=== PATIENT | male | born 1950 | race Hispanic/Latino ===

== ENCOUNTER 2017-03-28 10:35 | Day surgery (SDC) | payer MEDICARE, BC ==
[2017-03-28 11:02] VITALS: BMI 28.8
[2017-03-28] MEDS ORDERED: cefTRIAXone (Rocephin) 1 gm Inj ONE (11:53)
[2017-03-28] MEDS ORDERED: cefTRIAXone 1 gm 1 GM/100 ML BAG IVPB STA (11:55)
[2017-03-28] MEDS ORDERED: Etomidate 20 mg/10ml Inj IV ONE (12:19)
[2017-03-28] MEDS ORDERED: Propofol 10 mg/ml Inj (20 ML) ONE (12:19)
[2017-03-28] MEDS ORDERED: Midazolam 2 MG/2 ML VIAL ONE (12:19)
[2017-03-28] MEDS ORDERED: ePHEDrine 50 mg/ml Inj ONE (13:17)
[2017-03-28] MEDS ORDERED: Rocuronium 10 mg/ml (5 ml) ONE (13:36)
[2017-03-28] MEDS ORDERED: Neostigmine Methylsulfate 3mg/3ml Syringe IV ONE (13:54)
[2017-03-28] MEDS ORDERED: HYDROmorphone 0.5 mg/0.5 ml ISec IVP PRN (14:17)
[2017-03-28] MEDS ORDERED: Lactated Ringer's 1,000 ML IV SCH (14:30)
[2017-03-28 15:25] VITALS: RESP 18; TEMP 97.5; O2SAT 98
[2017-03-28 15:58] VITALS: BP 140/87; PULSE 50
--- NOTE | 2017-03-29 00:59 | OP ---
PROCEDURE DATE: 03/28/2017 PREOPERATIVE DIAGNOSIS: Bladder calculi. POSTOPERATIVE DIAGNOSIS: Bladder calculi with two large bladder calculi. PROCEDURE: Cystoscopy with holmium laser vesicolithotripsy of the largest bladder calculus greater than 4 cm. SURGEON: Renzo Ortiz MD ANESTHESIA: General endotracheal. DESCRIPTION OF PROCEDURE: After adequate general endotracheal anesthesia was given, the patient was placed in lithotomy, prepped and draped in the usual manner. A 22-Chilean cystourethroscope was introduced under direct vision. The anterior urethra was normal. Prostatic urethra showed minimal prostatic occlusion. The bladder showed 2 large bladder stones, 1 almost 4 cm, the other appeared to be about 2.5 cm. There were no tumors. Orifices were normal in appearance. Location with clear efflux once the stones removed out of the way. With the holmium laser, the larger stone was broken, although it took quite sometime, almost an hour and 15 minutes lasering just to break that stone into small pieces that could be evacuated. I realized it would be too much to do both stones in one sitting, the largest stone appeared to be the one that was causing his obstructive symptoms on voiding. Consequently, after fragmenting with the laser and evacuating the large stone into little pieces, then re-inspecting the bladder, there were only small fragments remaining and the remaining 2.5 cm bladder calculus. To evacuate the fragments, the large stone was lasered. I replaced the 22-Chilean cystoscope with a 26-Chilean continues flow resectoscope because it was larger, it was easier to evacuate the fragments. Re-inspection again showed no evidence of any bleeding. All return was clear. The resectoscope was removed and a 22-Ch[place]an three-way Carty catheter was easily inserted, irrigation was clear on CVI running also was clear. The patient tolerated the procedure well and was brought to the recovery room in good condition. Renzo Ortiz MD
== END 2017-03-28 17:20 | disposition home or self-care (01) ==
LOC: SDS 10:35
PROVIDERS: ATTEND Urology
DX: N21.0 Calculus in bladder (principal); I10 Essential (primary) hypertension; I25.10 Atherosclerotic heart disease of native coronary artery without angina pectoris; Z95.5 Presence of coronary angioplasty implant and graft
CPT/HCPCS: 52318; 87086; 88300; J0696; J1170; J2250; J2405; J2704; J2710; J3010; J7120

== ENCOUNTER 2017-07-31 06:16 | Day surgery (SDC) | payer MEDICARE, BC ==
[2017-07-31 07:04] VITALS: BMI 28.8
[2017-07-31] MEDS ORDERED: Midazolam 2 MG/2 ML VIAL ONE (07:35)
[2017-07-31] MEDS ORDERED: Propofol 10 mg/ml Inj (20 ML) ONE (07:35)
[2017-07-31] MEDS ORDERED: cefTRIAXone (Rocephin) 1 gm Inj ONE (07:41)
[2017-07-31] MEDS ORDERED: Sevoflurane - Inhalation Anesthetic Liq (250 ml) ONE (09:28)
[2017-07-31] MEDS ORDERED: Lidocaine 2% Jelly (Uro-Jet) ONE (09:51)
[2017-07-31 10:33] VITALS: TEMP 97.3
[2017-07-31 11:15] VITALS: RESP 18; O2SAT 98
[2017-07-31 11:38] VITALS: BP 128/84; PULSE 53
--- NOTE | 2017-07-31 19:43 | OP ---
PROCEDURE DATE: 07/31/2017 PREOPERATIVE DIAGNOSES: Bladder stones, bladder outlet obstruction. POSTOPERATIVE DIAGNOSES: Bladder stones, bladder outlet obstruction. PROCEDURE: Cystoscopy with ___vesico__ lithotripsy. ATTENDING SURGEON: Joe Walker MD. ANESTHESIA: General. SPECIMENS: Bladder stone fragments were sent to pathology. DRAINS: There were none. COMPLICATIONS: There were none. PROCEDURE IN DETAIL: After informed consent was obtained, the patient was taken to the operating room and placed on the operating room table. Anesthesia was administered. The patient was then placed in dorsal lithotomy position and prepped and draped in usual sterile fashion. First, a 22-E[place]ian cystoscope was placed in the patient's urethra and advanced proximally under direct vision until the bladder was entered. A full survey inspection of the bladder was then performed, which revealed a large solitary bladder stone. There was some small amounts of gravel in the bladder. There were no papillary tumors or other foreign bodies noted. At this point, the 22-E[place]ian scope was removed. A 26-Estonian resectoscope with a visualizing obturator was placed in the patient's urethra and advanced proximally under direct vision until the bladder was entered. A full survey inspection of bladder was then performed, again was noted the bladder stone. Both ureteral orifices were visualized and appeared within normal limits. At this point, using a working obturator, a holmium laser fiber was passed. Using the laser on dusting settings, stone fragmentation was begun. The stone was able to be fragmented into multiple small pieces. Where the core of the stone appeared somewhat harder and settings need to be altered a few times, however, the stone was able to be fragmented completely into small pieces. Using the Urovac evacuator, the stone fragments were able to be irrigated out of the bladder and removed. After the procedure was completed, there was good hemostasis with no active bleeding noted. There was some tiny amount of dust remaining in the bladder, but no sizable stone fragments. There were noted to be a few diverticulum, which were able to be inspected. There were no large stone fragments in the diverticulum. At this point, the procedure was complete and the bladder was drained and the scope was removed. Exam of the urethra revealed moderate trilobar hypertrophy of the prostate. There were no urethral strictures noted. At this point, the procedure was completed, the bladder was drained and the cystoscope was removed. The patient tolerated the procedure well. He was returned to the supine position and taken to the recovery room in awake and stable condition. Joe Walker MD [id number]
== END 2017-07-31 13:20 | disposition home or self-care (01) ==
LOC: SDS 06:16
PROVIDERS: ATTEND Urology
DX: N21.0 Calculus in bladder (principal); N32.0 Bladder-neck obstruction; I10 Essential (primary) hypertension; I25.10 Atherosclerotic heart disease of native coronary artery without angina pectoris; N40.0 Benign prostatic hyperplasia without lower urinary tract symptoms
CPT/HCPCS: 52318; 88300; J0696; J2001; J2250; J2405; J2704; J3010; J7120

== ENCOUNTER 2018-10-10 09:51 | Outpatient (CLI) | payer MEDICARE | END 2018-10-10 09:52 | disposition home or self-care (01) | LOC: LAB 09:51 ==

== ENCOUNTER 2018-10-19 06:31 | Outpatient (CLI) | payer MEDICARE | END 2018-10-19 06:32 | disposition home or self-care (01) | LOC: CARDIO 06:31 ==

== ENCOUNTER → 2018-10-23 | Outpatient (CLI) | payer MEDICARE | LOC: LAB 08:42 ==

== ENCOUNTER 2018-10-30 15:58 | Outpatient (CLI) | payer MEDICARE | END 2018-10-30 15:59 | disposition home or self-care (01) | LOC: RAD 15:58 ==